=== PATIENT | male | born 1960 | race Caucasian/White ===

== ENCOUNTER 2019-11-17 14:13 | Emergency (ER) | payer MEDICAID, MEDICARE ==
[~2019-11-17] VITALS: Ht 165.1 cm; Wt 75.0 kg
[~2019-11-17 14:13] MED LIST: CLON-527 PO
[2019-11-17 14:57] VITALS: BP 122/88
[2019-11-18] MEDS ORDERED: CLOT15CR5 TOP (12:28)
[2019-11-18] MEDS ORDERED: CEPH-572 PO (12:28)
== END 2019-11-17 19:00 | disposition left against medical advice (07) ==
LOC: ER 14:13
DX: M79.606 Pain in leg, unspecified (principal); Z53.21 Procedure and treatment not carried out due to patient leaving prior to being seen by health care provider

== ENCOUNTER 2019-11-18 09:32 | Emergency (ER) | payer MEDICARE, MEDICAID ==
[~2019-11-18] VITALS: Ht 165.1 cm; Wt 80.0 kg
[2019-11-18 09:50] VITALS: BP 134/94
--- NOTE | 2019-11-18 11:04 | NUR ---
PT WASHED STUMP WITH ANTIBACTERIAL SOAP.
[2019-11-18 12:06] LABS: BASOPHILS # (AUTO) 0.1 X10'3 (0-0.2); BASOPHILS % (AUTO) 1.4 % (0-1); EOSINOPHILS # (AUTO) 0.1 X10'3 (0-0.9); EOSINOPHILS % (AUTO) 1.2 % (0-6); HEMOGLOBIN 16.1 g/dl (14.0-17.9); LYMPHOCYTES % (AUTO) 25.4 % (21-51); MEAN CORPUSCULAR HEMOGLOBIN 32.8 PG (27.0-31.0); MEAN PLATELET VOLUME 6.8 FL (7.4-10.4); MONOCYTES # (AUTO) 1.2 X10'3 (0-0.9); MONOCYTES % (AUTO) 14.9 % (2-12); NEUTROPHILS # (AUTO) 4.4 X10'3 (1.8-7.7); NEUTROPHILS % (AUTO) 57.1 % (42-75); PLATELET COUNT 257 X10'3 (140-440); RED CELL DISTRIBUTION WIDTH 13.6 % (11.5-14.5); WHITE BLOOD COUNT 7.8 X10'3 (4.5-11.0)
[2019-11-18 12:22] LABS: ALANINE AMINOTRANSFERASE 16 U/L (12-78); ALBUMIN 3.5 G/DL (3.4-5.0); ALBUMIN/GLOBULIN RATIO 0.9 (1.1-1.5); ALKALINE PHOSPHATASE 115 IU/L (46-116); ANION GAP 5 (8-16); ASPARTATE AMINO TRANSFERASE 11 U/L (10-37); BILIRUBIN,TOTAL 0.3 MG/DL (0.1-1.0); BLOOD UREA NITROGEN 6 MG/DL (7-18); BUN/CREATININE RATIO 6.5 (5.4-32.0); CALCIUM 8.9 MG/DL (8.5-10.1); CHLORIDE 102 MMOL/L (99-107); CREATININE 0.93 MG/DL (0.60-1.10); GLUCOSE 80 MG/DL (70-104); POTASSIUM 4.9 MMOL/L (3.5-5.1); SODIUM 138 MMOL/L (135-145); TOTAL CARBON DIOXIDE 31.2 MMOL/L (24-32); TOTAL PROTEIN 7.6 G/DL (6.4-8.2); eGFR 83 ML/MIN
[2019-11-18] MEDS ORDERED: CLOT15CR5 TOP (12:28)
[2019-11-18] MEDS ORDERED: CEPH-572 PO (12:28)
--- NOTE | 2019-11-18 13:00 | NUR ---
KARYNA KARIMI IS AWARE WE DO NOT STOCK PROSTETIC LINERS. PT ADVICE TO FOLLOW-UP IMMDEIATELY WITH MD. AKA WRAPPED WITH GAUZE, CHAY BANDAGE, AND POST OP SOCK. PROSTECTIC NOT FITTING ON, MOVING UP AND DOWN. PA AWARE. PT STATES HE IS GOING STARIGHT TO [facility] OFFICE.
== END 2019-11-18 13:16 | disposition home or self-care (01) ==
LOC: ER 09:36
DX: L03.116 Cellulitis of left lower limb (principal); Z89.612 Acquired absence of left leg above knee
CPT/HCPCS: 36415; 80053; 85025; 99284

== ENCOUNTER 2020-12-07 09:08 | Emergency (ER) | payer MEDICARE, MEDICAID ==
[~2020-12-07] VITALS: Ht 165.1 cm; Wt 81.8 kg
[~2020-12-07 09:08] MED LIST changes: +CLOT15CR35 TOP
[2020-12-07 11:28] VITALS: BP 128/80
== END 2020-12-07 11:20 | disposition home or self-care (01) ==
LOC: ER 09:08
DX: S43.101A Unspecified dislocation of right acromioclavicular joint, initial encounter (principal); M25.551 Pain in right hip; M25.511 Pain in right shoulder; F41.9 Anxiety disorder, unspecified; F17.200 Nicotine dependence, unspecified, uncomplicated; Z86.69 Personal history of other diseases of the nervous system and sense organs; Z98.890 Other specified postprocedural states; Z79.899 Other long term (current) drug therapy; X58.XXXA Exposure to other specified factors, initial encounter; Y93.89 Activity, other specified; Y92.89 Other specified places as the place of occurrence of the external cause; Y99.8 Other external cause status
CPT/HCPCS: 73030; 73502; 99284

== ENCOUNTER 2022-04-30 15:23 | Emergency (ER) | payer MEDICARE, MEDICAID ==
[~2022-04-30] VITALS: Ht 162.6 cm; Wt 81.0 kg
[2022-04-30 18:05] VITALS: BP 145/99
== END 2022-04-30 18:07 | disposition home or self-care (01) ==
LOC: ER 15:24
DX: S01.01XA Laceration without foreign body of scalp, initial encounter (principal); R53.1 Weakness; G89.29 Other chronic pain; F41.9 Anxiety disorder, unspecified; F17.200 Nicotine dependence, unspecified, uncomplicated; Z86.69 Personal history of other diseases of the nervous system and sense organs; Z98.890 Other specified postprocedural states; Z79.2 Long term (current) use of antibiotics; Z79.899 Other long term (current) drug therapy; W19.XXXA Unspecified fall, initial encounter; Y93.89 Activity, other specified; Y92.89 Other specified places as the place of occurrence of the external cause; Y99.8 Other external cause status
CPT/HCPCS: 12001; 70450; 72125; 99284

== ENCOUNTER 2024-07-07 19:06 | Inpatient (IN) | payer MEDICARE, MEDICAID ==
[~2024-07-07] VITALS: Ht 177.8 cm; Wt 89.4 kg
[2024-07-07 20:11] LABS: BASOPHILS # (AUTO) 0.1 X10'3 (0-0.2); BASOPHILS % (AUTO) 0.7 % (0-1); EOSINOPHILS # (AUTO) 0.2 X10'3 (0-0.9); EOSINOPHILS % (AUTO) 1.8 % (0-6); HEMATOCRIT 43.6 % (42.0-52.0); HEMOGLOBIN 15.3 g/dl (14.0-17.9); LYMPHOCYTES # (AUTO) 3.4 X10'3 (1.1-4.8); LYMPHOCYTES % (AUTO) 28.9 % (21-51); MEAN CORPUSCULAR HEMOGLOBIN 33.2 PG (27.0-31.0); MEAN CORPUSCULAR HGB CONC 35.1 g/dL (33.0-36.5); MEAN CORPUSCULAR VOLUME 94.4 FL (78-98); MEAN PLATELET VOLUME 6.9 FL (7.4-10.4); MONOCYTES # (AUTO) 1.3 X10'3 (0-0.9); MONOCYTES % (AUTO) 10.9 % (2-12); NEUTROPHILS # (AUTO) 6.7 X10'3 (1.8-7.7); NEUTROPHILS % (AUTO) 57.7 % (42-75); PLATELET COUNT 307 X10'3 (140-440); RED BLOOD COUNT 4.62 X10'6 (4.70-6.10); WHITE BLOOD COUNT 11.6 X10'3 (4.5-11.0)
[2024-07-07 20:30] LABS: ALANINE AMINOTRANSFERASE 24 U/L (12-78); ALBUMIN 3.3 G/DL (3.4-5.0); ALBUMIN/GLOBULIN RATIO 0.8 (1.1-1.5); ALKALINE PHOSPHATASE 107 IU/L (46-116); ANION GAP 9 (8-16); ASPARTATE AMINO TRANSFERASE 11 U/L (10-37); BILIRUBIN,TOTAL 0.2 MG/DL (0.1-1.0); BLOOD UREA NITROGEN 15 MG/DL (7-18); BUN/CREATININE RATIO 7.6 (10.0-20.0); CALCIUM 9.4 MG/DL (8.5-10.1); CHLORIDE 97 MMOL/L (99-107); CREATININE 1.98 MG/DL (0.60-1.10); ETHANOL < 10 MG/DL (<10); GLUCOSE 147 MG/DL (70-104); SODIUM 136 MMOL/L (135-145); TOTAL CARBON DIOXIDE 29.9 MMOL/L (24-32); TOTAL PROTEIN 7.5 G/DL (6.4-8.2); eCRCL 38 ML/MIN; eGFR 34 ML/MIN
[2024-07-07 20:32] LABS: POTASSIUM 2.6 MMOL/L (3.5-5.1)
[2024-07-07 20:32] LABS: BILIRUBIN,URINE NEGATIVE (Neg); CLARITY,URINE CLEAR (Clear); COLOR,URINE YELLOW (Yellow); GLUCOSE, URINE NEGATIVE (Neg); KETONES,URINE NEGATIVE (Neg); LEUKOCYTE ESTERASE ,URINE NEGATIVE (Neg); NITRITES, URINE NEGATIVE (Neg); OCCULT BLOOD,URINE TRACE-INTACT (Neg); PH,URINE 7.5 (4.8-8.0); PROTEIN,URINE NEGATIVE (Neg); UROBILINOGEN,URINE 0.2 E.U/dL (0.2-1.0)
[2024-07-07 20:37] LABS: UA COLLECTION TYPE STRAIGHT CATH
[2024-07-07] MEDS: levetiracetam inj 1,000 MG in normal saline 100ml IV soln 100 ML IV ONE (20:37)
[2024-07-07 20:39] LABS: BACTERIA,URINE FEW /HPF (Neg); HYALINE CASTS 0-3 /LPF (NEGATIVE); RBC,URINE 0-2 /HPF (0-2); SQUAMOUS EPITHELIAL CELL,UR FEW /LPF (FEW); TRANSITIONAL EPI CELLS,URINE FEW /HPF; WBC,URINE 0-4 /HPF (0-4)
[2024-07-07 20:41] LABS: URINE AMPHETAMINE SCREEN NEGATIVE (Neg); URINE BARBITUATE SCREEN NEGATIVE (Neg); URINE BENZODIAZEPINES SCREEN NEGATIVE (Neg); URINE CANNABINOID SCREEN NEGATIVE (Neg); URINE COCAINE SCREEN NEGATIVE (Neg); URINE METHADONE SCREEN NEGATIVE (Neg); URINE OPIATE SCREEN NEGATIVE (Neg); URINE PHENCYCLIDINE SCREEN NEGATIVE (Neg)
[2024-07-07] MEDS: LidoCAINE 2% Topical Jelly 11mL syringe (UROJET) TOP ONE (20:41)
[2024-07-07 20:55] LABS: MAGNESIUM 1.6 MG/DL (1.5-2.4)
[2024-07-07] MEDS: potassium Cl 40MEQ/1/2NS 520ml 520 ML IV SCH (21:45)
[2024-07-07] MEDS: naloxone 0.4 mg/ml inj IV ONE (22:09)
[2024-07-07 22:34] LABS: ABG BASE EXCESS 2.1 mmol/L (-2.0-2.0); ABG HCO3 25.2 mmol/L (22.0-26.0); ABG OXYGEN SATURATION 95.7 % (92-98.5); ABG PCO2 (T) 33.7 mmHg (35.0-48.0); ABG PH (T) 7.489 (7.340-7.440); ABG PO2 (T) 79.4 mmHg (75.0-100.0); ALLEN'S TEST Modified; FCOHb 1.3 % (0.5-1.5); FHHb 4.2 % (0.0-5.0); FLOW 2 L/min; FMetHb 0.3 % (0.0-1.5); FO2Hb 94.2 % (94-97); MODE NASAL CANNULA; PATIENT TEMPERATURE 36.4
[2024-07-07] MEDS ORDERED: potassium Cl 40MEQ/1/2NS 520ml 520 ML IV PRN (23:10)
[2024-07-07] MEDS ORDERED: magnesium Cl slow-release 64mg tablet PO PRN (23:10)
[2024-07-07] MEDS ORDERED: magnesium hydroxide 30ml (MOM) UD suspension PO PRN (23:10)
[2024-07-07] MEDS ORDERED: magnesium sulf-water 4G/100mL 100 ML IV PRN (23:10)
[2024-07-07] MEDS ORDERED: magnesium sulf-water 2g/50mL 50 ML IV PRN (23:10)
[2024-07-07] MEDS ORDERED: potassium Cl 20 mEq SR tablet PO PRN (23:10)
[2024-07-07] MEDS ORDERED: ondansetron/PF 4mg/2ml inj IV PRN (23:10)
[2024-07-08 00:29] LABS: THYROID STIMULATING HORMONE 2.83 ulU/ml (0.34-4.50)
[2024-07-08 01:30] VITALS: BP 121/86; PULSE 83; RESP 18; TEMP 98.5; O2SAT 96
[2024-07-08 01:50] VITALS: RESP 18; O2SAT 96
[2024-07-08] MEDS: thiamine 100mg/ml 2ml inj. IV ONE (02:42)
[2024-07-08] MEDS: normal saline 1000ml 1,000 ML IV SCH (02:42)
[2024-07-08] MEDS ORDERED: METF-1203 (02:57)
[2024-07-08] MEDS ORDERED: DIVA-37 PO (02:57)
[2024-07-08] MEDS ORDERED: AMIT150T (02:57)
[2024-07-08] MEDS ORDERED: FURO40TA4 PO (03:19)
[2024-07-08] MEDS ORDERED: TRAZ-251 PO (03:19)
[2024-07-08] MEDS ORDERED: LATA2.5D14 EACHEYE (03:44)
[2024-07-08] MEDS ORDERED: glucagon, human recombinant 1mg kit SUBCUT PRN (04:15)
[2024-07-08] MEDS ORDERED: DEXTROSE 15 GM of carb/4 tabs (each vial/BOTTLE has 4 tablets) PO PRN ×2 (04:15)
[2024-07-08] MEDS ORDERED: dextrose 50%-water 50ml dispensing syringe IV PRN ×2 (04:15)
[2024-07-08 06:00] VITALS: BP 118/70; PULSE 83; RESP 17; TEMP 98; O2SAT 98
[2024-07-08 06:22] LABS: ALBUMIN 2.7 G/DL (3.4-5.0); ANION GAP 4 (8-16); BLOOD UREA NITROGEN 14 MG/DL (7-18); BUN/CREATININE RATIO 10.3 (10.0-20.0); CALCIUM 8.6 MG/DL (8.5-10.1); CHLORIDE 102 MMOL/L (99-107); CREATININE 1.36 MG/DL (0.60-1.10); GLUCOSE 121 MG/DL (70-104); SODIUM 137 MMOL/L (135-145); TOTAL CARBON DIOXIDE 30.6 MMOL/L (24-32); eCRCL 56 ML/MIN; eGFR 53 ML/MIN
[2024-07-08 06:25] LABS: BASOPHILS % (AUTO) 0.6 % (0-1); EOSINOPHILS # (AUTO) 0.2 X10'3 (0-0.9); EOSINOPHILS % (AUTO) 2.7 % (0-6); HEMATOCRIT 40.3 % (42.0-52.0); HEMOGLOBIN 13.7 g/dl (14.0-17.9); LYMPHOCYTES # (AUTO) 2.1 X10'3 (1.1-4.8); LYMPHOCYTES % (AUTO) 29.2 % (21-51); MEAN CORPUSCULAR HEMOGLOBIN 32.6 PG (27.0-31.0); MEAN CORPUSCULAR HGB CONC 34.1 g/dL (33.0-36.5); MEAN CORPUSCULAR VOLUME 95.4 FL (78-98); MEAN PLATELET VOLUME 6.9 FL (7.4-10.4); MONOCYTES # (AUTO) 0.8 X10'3 (0-0.9); MONOCYTES % (AUTO) 11.3 % (2-12); NEUTROPHILS % (AUTO) 56.2 % (42-75); PLATELET COUNT 256 X10'3 (140-440); RED BLOOD COUNT 4.22 X10'6 (4.70-6.10); RED CELL DISTRIBUTION WIDTH 14.2 % (11.5-14.5); WHITE BLOOD COUNT 7.2 X10'3 (4.5-11.0)
[2024-07-08 06:26] LABS: POTASSIUM 3.6 MMOL/L (3.5-5.1)
[2024-07-08 06:52] LABS: HEMOGLOBIN A1C 7.1 % (4.5-6.2)
[2024-07-08] MEDS: INSULIN LISPRO 100 UNIT/ML INSULN.PEN MULTI-DOSE SQ SCH (07:00)
[2024-07-08 07:38] LABS: PLATELET ESTIMATE NORMAL; TOTAL CELLS COUNTED 100
[2024-07-08 07:39] LABS: LARGE PLATELETS FEW
[2024-07-08] MEDS: docusate sod 100mg capsule PO SCH (08:00)
[2024-07-08] MEDS: K and/or MAG REPLACEMENT MC SCH (08:00)
[2024-07-08] MEDS: heparin, porcine 5000 units/ml vial SQ SCH (08:18)
[2024-07-08] MEDS: acetaminophen 325mg tablet PO PRN ×2 (08:23→17:37)
[2024-07-08 08:26] LABS: MAGNESIUM 1.6 MG/DL (1.5-2.4)
[2024-07-08 10:00] VITALS: BP 129/74; PULSE 78; RESP 18; TEMP 97.7; O2SAT 98
[2024-07-08 10:42] LABS: VALPROATE 59 UG/ML (50-100)
[2024-07-08 18:00] VITALS: BP 108/68; PULSE 80; RESP 18; TEMP 97.7; O2SAT 94
[2024-07-08 22:00] VITALS: BP 120/58; PULSE 78; RESP 18; TEMP 97.7; O2SAT 92
[2024-07-09 05:00] VITALS: BP 120/66; PULSE 80; RESP 18; TEMP 98; O2SAT 94
[2024-07-09 06:56] LABS: BASOPHILS % (AUTO) 0.4 % (0-1); EOSINOPHILS # (AUTO) 0.1 X10'3 (0-0.9); EOSINOPHILS % (AUTO) 2.1 % (0-6); HEMATOCRIT 40.1 % (42.0-52.0); HEMOGLOBIN 13.8 g/dl (14.0-17.9); LYMPHOCYTES # (AUTO) 1.6 X10'3 (1.1-4.8); LYMPHOCYTES % (AUTO) 24.4 % (21-51); MEAN CORPUSCULAR HEMOGLOBIN 32.8 PG (27.0-31.0); MEAN CORPUSCULAR HGB CONC 34.4 g/dL (33.0-36.5); MEAN CORPUSCULAR VOLUME 95.4 FL (78-98); MEAN PLATELET VOLUME 6.9 FL (7.4-10.4); MONOCYTES # (AUTO) 0.8 X10'3 (0-0.9); MONOCYTES % (AUTO) 11.2 % (2-12); NEUTROPHILS # (AUTO) 4.2 X10'3 (1.8-7.7); NEUTROPHILS % (AUTO) 61.9 % (42-75); PLATELET COUNT 241 X10'3 (140-440); RED CELL DISTRIBUTION WIDTH 14.1 % (11.5-14.5); WHITE BLOOD COUNT 6.7 X10'3 (4.5-11.0)
[2024-07-09 07:10] LABS: ALBUMIN 2.6 G/DL (3.4-5.0); ANION GAP 3 (8-16); BLOOD UREA NITROGEN 11 MG/DL (7-18); BUN/CREATININE RATIO 10.3 (10.0-20.0); CALCIUM 9.1 MG/DL (8.5-10.1); CHLORIDE 103 MMOL/L (99-107); CREATININE 1.07 MG/DL (0.60-1.10); GLUCOSE 120 MG/DL (70-104); POTASSIUM 3.2 MMOL/L (3.5-5.1); SODIUM 135 MMOL/L (135-145); TOTAL CARBON DIOXIDE 29.3 MMOL/L (24-32); eCRCL 71 ML/MIN; eGFR 69 ML/MIN
[2024-07-09] MEDS: furosemide 40mg tablet PO SCH (07:47)
[2024-07-09] MEDS: potassium Cl 20 mEq SR tablet PO PRN (07:48)
[2024-07-09] MEDS: divalproex sodium 500mg tablet.DR PO SCH (08:27)
[2024-07-09 10:00] VITALS: BP 101/55; PULSE 91; RESP 18; TEMP 98.2; O2SAT 92
[2024-07-09] MEDS: mag hydrox/Alum hydrox/simeth 30ml oral suspension PO PRN (15:37)
[2024-07-09 18:00] VITALS: BP 128/59; PULSE 84; RESP 12; TEMP 98.4; O2SAT 92
[2024-07-09] MEDS: traZODone 50mg tablet PO SCH (20:35)
[2024-07-09 22:00] VITALS: BP 102/57; PULSE 88; RESP 18; TEMP 97.8; O2SAT 95
[2024-07-10 05:00] VITALS: BP 125/72; PULSE 73; RESP 18; TEMP 97.9; O2SAT 94
[2024-07-10 06:36] LABS: BASOPHILS % (AUTO) 0.4 % (0-1); EOSINOPHILS # (AUTO) 0.2 X10'3 (0-0.9); EOSINOPHILS % (AUTO) 1.9 % (0-6); HEMATOCRIT 42.2 % (42.0-52.0); HEMOGLOBIN 14.4 g/dl (14.0-17.9); LYMPHOCYTES # (AUTO) 2.3 X10'3 (1.1-4.8); LYMPHOCYTES % (AUTO) 24.1 % (21-51); MEAN CORPUSCULAR HEMOGLOBIN 32.7 PG (27.0-31.0); MEAN CORPUSCULAR HGB CONC 34.1 g/dL (33.0-36.5); MEAN CORPUSCULAR VOLUME 95.9 FL (78-98); MEAN PLATELET VOLUME 7.1 FL (7.4-10.4); MONOCYTES % (AUTO) 10.1 % (2-12); NEUTROPHILS % (AUTO) 63.5 % (42-75); PLATELET COUNT 242 X10'3 (140-440); RED CELL DISTRIBUTION WIDTH 14.5 % (11.5-14.5); WHITE BLOOD COUNT 9.5 X10'3 (4.5-11.0)
[2024-07-10 06:41] LABS: ALBUMIN 2.7 G/DL (3.4-5.0); ANION GAP 8 (8-16); BLOOD UREA NITROGEN 11 MG/DL (7-18); BUN/CREATININE RATIO 10.3 (10.0-20.0); CALCIUM 9.2 MG/DL (8.5-10.1); CHLORIDE 104 MMOL/L (99-107); CREATININE 1.07 MG/DL (0.60-1.10); GLUCOSE 128 MG/DL (70-104); POTASSIUM 4.2 MMOL/L (3.5-5.1); SODIUM 138 MMOL/L (135-145); TOTAL CARBON DIOXIDE 26.5 MMOL/L (24-32); eCRCL 71 ML/MIN; eGFR 69 ML/MIN
[2024-07-10] MEDS: potassium Cl 20 mEq SR tablet PO SCH (07:34)
[2024-07-10 08:48] LABS: PLATELET ESTIMATE NORMAL; TOTAL CELLS COUNTED 100
[2024-07-10 10:00] VITALS: BP 123/64; PULSE 88; RESP 13; TEMP 98.3; O2SAT 93
[2024-07-10] MEDS ORDERED: TRAZ-251 PO (11:35)
[2024-07-10 18:00] VITALS: BP 138/81; PULSE 86; RESP 18; TEMP 98; O2SAT 95
[2024-07-10 22:00] VITALS: BP 118/55; PULSE 87; RESP 18; TEMP 98.4; O2SAT 91
[2024-07-10] MEDS: Melatonin 3mg tablet PO SCH (22:58)
[2024-07-11 06:44] VITALS: BP 120/72; PULSE 79; RESP 14; TEMP 97.8; O2SAT 98
[2024-07-11 07:03] LABS: BASOPHILS % (AUTO) 0.5 % (0-1); EOSINOPHILS # (AUTO) 0.2 X10'3 (0-0.9); EOSINOPHILS % (AUTO) 2.2 % (0-6); HEMATOCRIT 44.3 % (42.0-52.0); LYMPHOCYTES # (AUTO) 2.2 X10'3 (1.1-4.8); LYMPHOCYTES % (AUTO) 24.1 % (21-51); MEAN CORPUSCULAR HEMOGLOBIN 32.4 PG (27.0-31.0); MEAN CORPUSCULAR HGB CONC 33.8 g/dL (33.0-36.5); MEAN CORPUSCULAR VOLUME 95.8 FL (78-98); MONOCYTES # (AUTO) 0.9 X10'3 (0-0.9); MONOCYTES % (AUTO) 10.2 % (2-12); NEUTROPHILS # (AUTO) 5.7 X10'3 (1.8-7.7); PLATELET COUNT 238 X10'3 (140-440); RED BLOOD COUNT 4.62 X10'6 (4.70-6.10); WHITE BLOOD COUNT 9.1 X10'3 (4.5-11.0)
[2024-07-11 07:16] LABS: ALBUMIN 2.9 G/DL (3.4-5.0); ANION GAP 7 (8-16); BLOOD UREA NITROGEN 13 MG/DL (7-18); BUN/CREATININE RATIO 12.5 (10.0-20.0); CHLORIDE 104 MMOL/L (99-107); CREATININE 1.04 MG/DL (0.60-1.10); GLUCOSE 120 MG/DL (70-104); POTASSIUM 4.2 MMOL/L (3.5-5.1); SODIUM 137 MMOL/L (135-145); TOTAL CARBON DIOXIDE 26.4 MMOL/L (24-32); eCRCL 73 ML/MIN; eGFR 72 ML/MIN
[2024-07-11 07:46] LABS: PLATELET ESTIMATE NORMAL; TOTAL CELLS COUNTED 100
[2024-07-11 08:00] VITALS: RESP 16; O2SAT 98
== END 2024-07-11 10:00 | disposition home or self-care (01) | DRG 100 ==
LOC: ER 19:07 → ED HOLD 23:13 → ORTHO 4S 07-08 01:33
PROVIDERS: ADMIT Internal Medicine Critical Care Medicine; ATTEND Family Medicine
DX: G40.909 Epilepsy, unspecified, not intractable, without status epilepticus (principal); N17.0 Acute kidney failure with tubular necrosis; I50.32 Chronic diastolic (congestive) heart failure; R65.10 Systemic inflammatory response syndrome (SIRS) of non-infectious origin without acute organ dysfunction; E87.6 Hypokalemia; E11.9 Type 2 diabetes mellitus without complications; K59.00 Constipation, unspecified; I11.0 Hypertensive heart disease with heart failure; Z79.84 Long term (current) use of oral hypoglycemic drugs; Z79.899 Other long term (current) drug therapy; Z89.612 Acquired absence of left leg above knee; E86.0 Dehydration
CPT/HCPCS: 36415; 36600; 70450; 71045; 74176; 80048; 80053; 80164; 80305; 80320; 81001; 82140; 82607; 82803; 82948; 83036; 83735; 83930; 84145; 84443; 84484; 85007; 85018; 85025; 87081; 92508; 92616; 93005; 96365; 96375; 97161; 97530; 97535; 99285; A4314; A4340; A6258; A6590; C1758; G0378; J1644; J1815; J1953; J2310; J3411; J3480; J7030

== ENCOUNTER 2024-07-17 07:21 | Emergency (ER) | payer MEDICARE, MEDICAID ==
[~2024-07-17] VITALS: Ht 165.1 cm; Wt 89.5 kg
[~2024-07-17 07:21] MED LIST changes: -CLON-527 PO; -CLOT15CR35 TOP; +DIVA-37 PO; +DOXY-225 PO; +EMPA10TA PO; +FURO40TA4 PO; +GLIP5TAB23 PO; +LATA2.5D14 EACHEYE; +LEVE250T PO; +TRAZ-251 PO
[2024-07-17] MEDS: LIDOcaine 1% W/epiNEPHrine 1:100,000 20ml vial SQ ONE (09:05)
[2024-07-17 10:44] VITALS: BP 145/82; PULSE 81; RESP 16; TEMP 97.8; O2SAT 97
== END 2024-07-17 10:46 | disposition home or self-care (01) ==
LOC: ER 07:22
DX: S01.81XA Laceration without foreign body of other part of head, initial encounter (principal); G89.29 Other chronic pain; F41.9 Anxiety disorder, unspecified; F41.0 Panic disorder [episodic paroxysmal anxiety]; Z98.890 Other specified postprocedural states; Z79.899 Other long term (current) drug therapy; Z79.2 Long term (current) use of antibiotics; W05.0XXA Fall from non-moving wheelchair, initial encounter; Y93.89 Activity, other specified; Y92.89 Other specified places as the place of occurrence of the external cause; Y99.8 Other external cause status
CPT/HCPCS: 12002; 70450; 72040; 99284

== ENCOUNTER 2024-07-19 11:13 | Emergency (ER) | payer MEDICARE, MEDICAID ==
[~2024-07-19] VITALS: Ht 165.1 cm; Wt 88.6 kg
[2024-07-19 13:22] LABS: BILIRUBIN,URINE NEGATIVE (Neg); CLARITY,URINE CLOUDY (Clear); COLOR,URINE YELLOW (Yellow); GLUCOSE, URINE 100 mg/dl (Neg); KETONES,URINE TRACE mg/dl (Neg); LEUKOCYTE ESTERASE ,URINE NEGATIVE (Neg); NITRITES, URINE NEGATIVE (Neg); OCCULT BLOOD,URINE NEGATIVE (Neg); PROTEIN,URINE NEGATIVE (Neg); UROBILINOGEN,URINE 0.2 E.U/dL (0.2-1.0)
[2024-07-19 13:28] LABS: BASOPHILS % (AUTO) 0.4 % (0-1); EOSINOPHILS # (AUTO) 0.1 X10'3 (0-0.9); EOSINOPHILS % (AUTO) 0.9 % (0-6); HEMOGLOBIN 14.9 g/dl (14.0-17.9); LYMPHOCYTES # (AUTO) 1.7 X10'3 (1.1-4.8); LYMPHOCYTES % (AUTO) 14.3 % (21-51); MEAN CORPUSCULAR HGB CONC 33.9 g/dL (33.0-36.5); MEAN CORPUSCULAR VOLUME 97.3 FL (78-98); MONOCYTES # (AUTO) 1.4 X10'3 (0-0.9); MONOCYTES % (AUTO) 11.7 % (2-12); NEUTROPHILS # (AUTO) 8.7 X10'3 (1.8-7.7); NEUTROPHILS % (AUTO) 72.7 % (42-75); PLATELET COUNT 257 X10'3 (140-440); RED BLOOD COUNT 4.52 X10'6 (4.70-6.10); RED CELL DISTRIBUTION WIDTH 14.8 % (11.5-14.5)
[2024-07-19 13:35] LABS: UA COLLECTION TYPE NON-SPECIFIED
[2024-07-19 13:39] LABS: SQUAMOUS EPITHELIAL CELL,UR FEW /LPF (FEW)
[2024-07-19 13:41] LABS: BACTERIA,URINE 3+ /HPF (Neg); RBC,URINE NONE SEEN /HPF (0-2)
[2024-07-19] MEDS ORDERED: AZIT-164 PO (13:44)
[2024-07-19] MEDS ORDERED: PRED20TA PO (13:44)
[2024-07-19] MEDS: ketorolac trometh 30MG/ML vial 30 MG/ML VIAL IM ONE (13:56)
[2024-07-19 13:59] LABS: ALBUMIN 3.5 G/DL (3.4-5.0); ANION GAP 10 (8-16); BLOOD UREA NITROGEN 17 MG/DL (7-18); CALCIUM 9.2 MG/DL (8.5-10.1); CHLORIDE 99 MMOL/L (99-107); CREATININE 1.21 MG/DL (0.60-1.10); GLUCOSE 82 MG/DL (70-104); POTASSIUM 3.6 MMOL/L (3.5-5.1); PRO BRAIN NATRIURETIC PEPTIDE < 30 PG/ML (0-125); SODIUM 138 MMOL/L (135-145); TOTAL CARBON DIOXIDE 29.5 MMOL/L (24-32); eCRCL 53 ML/MIN; eGFR 60 ML/MIN
[2024-07-19 14:29] VITALS: BP 120/85; PULSE 85; RESP 18; TEMP 97.8; O2SAT 98
== END 2024-07-19 14:32 | disposition home or self-care (01) ==
LOC: ER 11:14
DX: J42 Unspecified chronic bronchitis (principal); M53.3 Sacrococcygeal disorders, not elsewhere classified; G89.29 Other chronic pain; F41.9 Anxiety disorder, unspecified; F41.0 Panic disorder [episodic paroxysmal anxiety]; Z98.890 Other specified postprocedural states; Z79.899 Other long term (current) drug therapy
CPT/HCPCS: 36415; 71045; 80048; 81001; 83880; 84484; 85025; 93005; 96372; 99285; J1885

== ENCOUNTER 2024-07-26 09:09 | Emergency (ER) | payer MEDICARE, MEDICAID ==
[~2024-07-26] VITALS: Ht 172.7 cm; Wt 88.6 kg
[~2024-07-26 09:09] MED LIST changes: +AZIT-164 PO; -DOXY-225 PO; +PRED20TA PO
[2024-07-27] MEDS: traMADol 50MG tablet PO ONE (11:15)
[2024-07-27 12:10] LABS: BASOPHILS % (AUTO) 0.2 % (0-1); EOSINOPHILS % (AUTO) 0.5 % (0-6); HEMATOCRIT 44.2 % (42.0-52.0); HEMOGLOBIN 14.7 g/dl (14.0-17.9); LYMPHOCYTES # (AUTO) 1.7 X10'3 (1.1-4.8); LYMPHOCYTES % (AUTO) 20.1 % (21-51); MEAN CORPUSCULAR HEMOGLOBIN 32.7 PG (27.0-31.0); MEAN CORPUSCULAR HGB CONC 33.3 g/dL (33.0-36.5); MEAN CORPUSCULAR VOLUME 98.2 FL (78-98); MONOCYTES # (AUTO) 1.2 X10'3 (0-0.9); MONOCYTES % (AUTO) 13.4 % (2-12); NEUTROPHILS # (AUTO) 5.7 X10'3 (1.8-7.7); NEUTROPHILS % (AUTO) 65.8 % (42-75); PLATELET COUNT 251 X10'3 (140-440); RED CELL DISTRIBUTION WIDTH 14.9 % (11.5-14.5); WHITE BLOOD COUNT 8.6 X10'3 (4.5-11.0)
[2024-07-27 12:12] LABS: BILIRUBIN,URINE NEGATIVE (Neg); CLARITY,URINE CLEAR (Clear); COLOR,URINE YELLOW (Yellow); GLUCOSE, URINE >=1000 mg/dl (Neg); KETONES,URINE TRACE mg/dl (Neg); LEUKOCYTE ESTERASE ,URINE NEGATIVE (Neg); NITRITES, URINE NEGATIVE (Neg); OCCULT BLOOD,URINE NEGATIVE (Neg); PH,URINE 6.5 (4.8-8.0); PROTEIN,URINE NEGATIVE (Neg)
[2024-07-27 12:13] LABS: UA COLLECTION TYPE CLN CATCH MIDSTREAM
[2024-07-27 12:20] LABS: ALANINE AMINOTRANSFERASE 28 U/L (12-78); ALBUMIN/GLOBULIN RATIO 0.8 (1.1-1.5); ALKALINE PHOSPHATASE 81 IU/L (46-116); ANION GAP 7 (8-16); ASPARTATE AMINO TRANSFERASE 20 U/L (10-37); BILIRUBIN,TOTAL 0.3 MG/DL (0.1-1.0); BLOOD UREA NITROGEN 25 MG/DL (7-18); BUN/CREATININE RATIO 20.7 (10.0-20.0); CALCIUM 9.3 MG/DL (8.5-10.1); CHLORIDE 103 MMOL/L (99-107); CREATININE 1.21 MG/DL (0.60-1.10); GLUCOSE 93 MG/DL (70-104); POTASSIUM 3.8 MMOL/L (3.5-5.1); SODIUM 141 MMOL/L (135-145); TOTAL CARBON DIOXIDE 31.5 MMOL/L (24-32); TOTAL PROTEIN 6.8 G/DL (6.4-8.2); eCRCL 59 ML/MIN; eGFR 60 ML/MIN
[2024-07-27 12:30] LABS: BACTERIA,URINE FEW /HPF (Neg); CAL OXALATE CRYSTALS 1+ /HPF (NEGATIVE); MUCUS STRANDS NONE SEEN /LPF (Neg); RBC,URINE NONE SEEN /HPF (0-2); SQUAMOUS EPITHELIAL CELL,UR MODERATE /LPF (FEW)
[2024-07-27] MEDS: acetaminophen 325mg tablet PO ONE (21:57)
[2024-07-28 17:35] VITALS: BP 156/89; PULSE 73; RESP 18; TEMP 98.7; O2SAT 99
== END 2024-07-28 17:55 | disposition still patient (30) ==
LOC: ER 09:09
DX: Z00.00 Encounter for general adult medical examination without abnormal findings (principal); F17.200 Nicotine dependence, unspecified, uncomplicated; G89.29 Other chronic pain; F41.9 Anxiety disorder, unspecified; F41.0 Panic disorder [episodic paroxysmal anxiety]; Z98.890 Other specified postprocedural states; Z79.2 Long term (current) use of antibiotics; Z79.899 Other long term (current) drug therapy; Z79.52 Long term (current) use of systemic steroids
CPT/HCPCS: 36415; 80053; 81001; 82948; 85025; 99285